=== PATIENT | male | born 1985 | race Caucasian/White ===

== ENCOUNTER 2017-10-03 10:21 | Day surgery (SDC) | payer OTHER ==
[2017-10-03] MEDS ORDERED: NEOSTIGMINE 10 MG/10 ML VIAL (J2710) (10:22)
[2017-10-03] MEDS ORDERED: LR 1,000 ML IV ×2 (10:30→15:00)
[2017-10-03] MEDS ORDERED: PROPOFOL 200 MG/20 ML VIAL As Ordered (12:25)
[2017-10-03] MEDS ORDERED: ROCURONIUM BROMIDE 50 MG/5 ML VIAL As Ordered (12:26)
[2017-10-03] MEDS ORDERED: LIDOCAINE 2% INJ 100 MG/5 ML SDV (FOR ANES.) As Ordered (12:27)
[2017-10-03] MEDS ORDERED: fentaNYL 250 MCG/5 ML INJECTION (J3010) As Ordered (12:56)
[2017-10-03] MEDS ORDERED: MIDAZOLAM INJ 2 MG/2 ML VIAL (J2250) As Ordered (12:57)
[2017-10-03] MEDS: OXYMETAZOLINE NASAL SPRAY (AFRIN) As Ordered (13:34)
[2017-10-03] MEDS: LIDOCAINE W/EPINEPHRINE 1% 20ML VIAL As Ordered (13:34)
[2017-10-03] MEDS: METHYLENE BLUE 0.5% (5MG/ML) 10 ML AMP (PROVAYBLUE)(Q9968 PER 1MG) As Ordered (13:34)
[2017-10-03] MEDS ORDERED: dexameTHASONE 4 MG/ML 1ML VIAL (J1100) As Ordered (13:45)
[2017-10-03] MEDS ORDERED: KETOROLAC 60 MG/2 ML VIAL (J1885) As Ordered (13:45)
[2017-10-03] MEDS ORDERED: METOCLOPRAMIDE INJ 10MG/2ML VIAL (J2765) As Ordered (13:45)
[2017-10-03] MEDS ORDERED: NEOSTIGMINE 10 MG/10 ML VIAL (J2710) As Ordered (13:45)
[2017-10-03] MEDS ORDERED: GLYCOPYRROLATE INJ 0.2 MG/ML 2 ML VIAL As Ordered (13:45)
[2017-10-03] MEDS ORDERED: ONDANSETRON 4MG/2ML VIAL (J2405) As Ordered (13:45)
[2017-10-03] MEDS ORDERED: DESFLURANE 240 ML INHALANT As Ordered (13:54)
[2017-10-03] MEDS ORDERED: PERCOCET 5MG/325MG TAB As Ordered (14:50)
[2017-10-03] MEDS: PERCOCET 5MG/325MG TAB PO (14:56)
[2017-10-03] MEDS ORDERED: IBUPROFEN 800 MG TAB PO (15:00)
[2017-10-03] MEDS ORDERED: HYDROmorphone HCL 1 MG/ML SYRINGE (J1170) IV (15:00)
[2017-10-03] MEDS ORDERED: fentaNYL 100 MCG/2 ML INJECTION (J3010) IV (15:00)
[2017-10-03] MEDS ORDERED: METOCLOPRAMIDE INJ 10MG/2ML VIAL (J2765) IV (15:00)
[2017-10-03] MEDS ORDERED: ONDANSETRON 4MG/2ML VIAL (J2405) IV (15:00)
[2017-10-03] MEDS ORDERED: PERCOCET 5MG/325MG TAB PO (15:00)
== END 2017-10-03 15:45 | disposition home or self-care (01) ==
LOC: M SDC 15:45
DX: J34.2 Deviated nasal septum (principal); J31.0 Chronic rhinitis; K21.9 Gastro-esophageal reflux disease without esophagitis; E66.9 Obesity, unspecified; Z68.33 Body mass index [BMI] 33.0-33.9, adult
CPT/HCPCS: 30520